=== PATIENT | female | born 1955 | race Caucasian/White ===

== ENCOUNTER 2016-09-17 13:05 | Inpatient (IN) | payer OTHER ==
[~2016-09-17] VITALS: Ht 157.5 cm; Wt 46.3 kg
[2016-09-17] MEDS ORDERED: CAN'T RECALL (13:11)
[2016-09-17 13:30] LABS: BASOPHILS # (AUTO) 0.9 /CMM (0.0-0.2); EOSINOPHILS % (AUTO) 0.2 % (0.0-6.0); HEMATOCRIT 33 % (33-45); HEMOGLOBIN 10.7 g/dL (11.5-14.8); LYMPHOCYTES # (AUTO) 0.3 /CMM (0.8-4.8); LYMPHOCYTES % (AUTO) 1.6 % (20.0-44.0); MEAN CORPUSCULAR HEMOGLOBIN 29 PG (26.0-33.0); MEAN CORPUSCULAR HGB CONC 33 g/dl (31.0-36.0); MEAN CORPUSCULAR VOLUME 89 fL (82-100); MONOCYTES # (AUTO) 0.4 /CMM (0.1-1.30); MONOCYTES % (AUTO) 2.3 % (2.0-12.0); NEUTROPHILS # (AUTO) 15.9 /CMM (1.8-8.9); NEUTROPHILS % (AUTO) 90.7 % (43.0-81.0); PLATELET COUNT (AUTO) 429 /CMM (150-450); RED BLOOD CELL COUNT(AUTO) 3.71 MIL/uL (4.0-5.2); WHITE BLOOD COUNT (AUTO) 17.5 K/uL (4.3-11.0)
[2016-09-17 13:31] LABS: BASOPHILS % (AUTO) 5.2 % (0.0-2.0); DIFF TOTAL % 100 %
[2016-09-17] MEDS ORDERED: IV SET PRIMARY PUMP SET 1 EA INFUS.SET MC ONE ×2 (13:34→14:33)
[2016-09-17] MEDS ORDERED: IV NS 0.9% 1,000 ML ONE ×2 (13:34→14:33)
[2016-09-17 13:43] LABS: INR 1.14 (0.87-1.13)
[2016-09-17] MEDS ORDERED: IV NS 0.9% 1,000 ML BAG IV ONE ×2 (14:00→20:30)
[2016-09-17 14:30] LABS: CREATININE 0.8 mg/dL (0.6-1.3); POTASSIUM 3.5 mmol/L (3.5-5.1)
[2016-09-17] MEDS ORDERED: VANCOMYCIN 1 GM in IV D5W 250 ML IV ONE (14:30)
[2016-09-17] MEDS ORDERED: CEFEPIME 1 GM in IV D5W 50 ML IV ONE (14:30)
[2016-09-17] MEDS ORDERED: IV NS 0.9% 1,000 ML IV ONE (14:30)
[2016-09-17 14:32] LABS: CALCIUM, SERUM 13.9 mg/dL (8.5-10.1)
[2016-09-17 14:37] LABS: HYPOCHROMASIA 1+; PLATELET ESTIMATE INCREASED
[2016-09-17 14:38] LABS: ANISOCYTOSIS 1+
[2016-09-17 14:55] LABS: LACTIC ACID 2.3 mmol/L (0.4-2.0)
[2016-09-17 15:13] LABS: *LACTIC ACID REFLEX FLAG YES
[2016-09-17 15:57] LABS: BAND % (MANUAL) 7 % (0.0-5.0); EOSINOPHILS % (MANUAL) 1 % (0-4); LYMPHOCYTES % (MANUAL) 2 % (16-48)
[2016-09-17] MEDS ORDERED: IV NS 0.9% 1,000 ML IV PRN (16:15)
[2016-09-17] MEDS ORDERED: ZOLPIDEM TARTRATE 5 MG TABLET PO PRN (16:30)
[2016-09-17] MEDS ORDERED: MAGNESIUM HYDROXIDE 30 ML UDC PO PRN (16:30)
[2016-09-17] MEDS ORDERED: Z GUARD REMEDY 2 OZ OINT TP PRN (16:30)
[2016-09-17] MEDS ORDERED: MORPHINE SULFATE INJ 2 MG/ML DISP.SYRIN IV PRN (16:30)
[2016-09-17] MEDS ORDERED: ONDANSETRON HCL/PF 4 MG/2 ML VIAL IVP PRN (16:30)
[2016-09-17] MEDS ORDERED: FEE PK DOSING 1 MIN EA MC ONE (16:46)
[2016-09-17 16:58] LABS: BILIRUBIN,DIRECT 0.1 mg/dL (0.0-0.2); BILIRUBIN,TOTAL 0.3 mg/dL (0.2-1.0)
[2016-09-17 17:00] VITALS: BP 90/58
[2016-09-17] MEDS: ENOXAPARIN SODIUM 40 MG/0.4 ML DISP.SYRIN SQ SCH (18:02)
[2016-09-17 20:00] VITALS: BP 74/58
[2016-09-17] MEDS ORDERED: PAMIDRONATE 90 MG in IV NS 0.9% 500 ML IV ONE (20:00)
[2016-09-17] MEDS ORDERED: IV SET PRIMARY 1 EA INFUS.SET MC ONE (22:01)
[2016-09-17] MEDS ORDERED: IPRATROPIUM NEB FS 0.5 MG/2.5 ML AMPUL.NEB NEB PRN (22:30)
[2016-09-17] MEDS ORDERED: ALBUTEROL FS 2.5 MG/0.5 ML VIAL.NEB NEB PRN (22:30)
[2016-09-17] MEDS ORDERED: SECONDARY IV SET 1 EA INFUS.SET MC ONE ×2 (22:46→22:55)
[2016-09-17] MEDS: CEFEPIME 1 GM in IV D5W 50 ML IV SCH (22:52)
[2016-09-18] VITALS: BP 83/53
[2016-09-18] MEDS ORDERED: SECONDARY IV SET 1 EA INFUS.SET MC ONE (00:20)
[2016-09-18] MEDS: VANCOMYCIN 0.75 GM in IV D5W 250 ML IV SCH ×3 (00:24→16:55)
[2016-09-18 04:00] VITALS: BP 81/49
[2016-09-18] MEDS: CEFEPIME 1 GM in IV D5W 50 ML IV SCH ×3 (06:03→20:58)
[2016-09-18 07:55] LABS: LACTIC ACID 1.8 mmol/L (0.4-2.0)
[2016-09-18 07:57] LABS: BASOPHILS % (AUTO) 0.1 % (0.0-2.0); DIFF TOTAL % 100 %; EOSINOPHILS # (AUTO) 0.1 /CMM (0.0-0.7); EOSINOPHILS % (AUTO) 0.7 % (0.0-6.0); HEMATOCRIT 25 % (33-45); HEMOGLOBIN 8.1 g/dL (11.5-14.8); LYMPHOCYTES # (AUTO) 0.3 /CMM (0.8-4.8); LYMPHOCYTES % (AUTO) 2.3 % (20.0-44.0); MEAN CORPUSCULAR HEMOGLOBIN 29 PG (26.0-33.0); MEAN CORPUSCULAR HGB CONC 32 g/dl (31.0-36.0); MEAN CORPUSCULAR VOLUME 89 fL (82-100); MONOCYTES # (AUTO) 0.5 /CMM (0.1-1.30); MONOCYTES % (AUTO) 4.8 % (2.0-12.0); NEUTROPHILS # (AUTO) 10.4 /CMM (1.8-8.9); NEUTROPHILS % (AUTO) 92.1 % (43.0-81.0); PLATELET COUNT (AUTO) 360 /CMM (150-450); RED BLOOD CELL COUNT(AUTO) 2.81 MIL/uL (4.0-5.2); WHITE BLOOD COUNT (AUTO) 11.2 K/uL (4.3-11.0)
[2016-09-18 08:00] VITALS: BP 85/53
[2016-09-18 08:23] LABS: ALANINE AMINOTRANSFERASE < 6 U/L (12-78); ALBUMIN 1.5 g/dL (3.4-5.0); ANION GAP 13 (5-14); ASPARTATE AMINOTRANSFERASE 32 U/L (15-37); BILIRUBIN,TOTAL 0.2 mg/dL (0.2-1.0); CALCIUM, SERUM 12.1 mg/dL (8.5-10.1); CARBON DIOXIDE 23 mmol/L (21-32); CHLORIDE 102 mmol/L (98-107); CREATININE 0.7 mg/dL (0.6-1.3); GFR 86 mL/min (>60); GLUCOSE 95 mg/dL (74-106); PHOSPHORUS 1.4 mg/dL (2.5-4.9); POTASSIUM 3.3 mmol/L (3.5-5.1); SODIUM SERUM 135 mmol/L (136-145); TOTAL PROTEIN, SERUM 5.2 g/dL (6.4-8.2); UREA NITROGEN, BLOOD 10 mg/dL (7-18)
[2016-09-18 08:36] LABS: THYROID STIMULATING HORMONE 41.87 uIU/mL (0.358-3.74)
[2016-09-18] MEDS: PANTOPRAZOLE 40 MG TABLET.DR PO SCH (09:01)
[2016-09-18] MEDS ORDERED: IOHEXOL-350 100 ML VIAL IV ONE (11:30)
[2016-09-18] MEDS ORDERED: IV NS 0.9% 0 ML IV ONE (11:30)
[2016-09-18] MEDS ORDERED: CT SWABBABLE VALVE TRANS SET 1 EA INFUS.SET MC ONE (11:30)
[2016-09-18] MEDS ORDERED: FEE PK DOSING 1 MIN EA MC ONE (15:32)
[2016-09-18 16:00] VITALS: BP 89/60
[2016-09-18] MEDS ORDERED: K PHOS NEUTRAL 250 MG TABLET PO ONE (16:30)
[2016-09-18] MEDS: IV NS 0.9% 1,000 ML IV PRN (16:55)
[2016-09-18 20:00] VITALS: BP 83/49
[2016-09-18 20:14] VITALS: BP 83/49
[2016-09-18] MEDS: ENOXAPARIN SODIUM 40 MG/0.4 ML DISP.SYRIN SQ SCH (21:02)
[2016-09-18] MEDS: MAGNESIUM OXIDE 400 MG TABLET PO SCH (21:02)
[2016-09-19] VITALS (7 sets, daily range): BP systolic 81–110; BP diastolic 51–60
[2016-09-19] MEDS: CEFEPIME 1 GM in IV D5W 50 ML IV SCH ×3 (05:28→22:41)
[2016-09-19] MEDS: IV NS 0.9% 1,000 ML IV PRN (05:29)
[2016-09-19] MEDS: VANCOMYCIN 0.75 GM in IV D5W 250 ML IV SCH ×4 (08:00→17:39)
[2016-09-19] MEDS: FERROUS SULFATE (325 MG) 325 MG/TAB TABLET PO SCH ×2 (09:00→17:41)
[2016-09-19 09:42] LABS: BASOPHILS % (AUTO) 0.3 % (0.0-2.0); DIFF TOTAL % 100 %; EOSINOPHILS # (AUTO) 0.1 /CMM (0.0-0.7); HEMATOCRIT 25 % (33-45); HEMOGLOBIN 8.1 g/dL (11.5-14.8); LYMPHOCYTES # (AUTO) 0.3 /CMM (0.8-4.8); LYMPHOCYTES % (AUTO) 3.3 % (20.0-44.0); MEAN CORPUSCULAR HEMOGLOBIN 29 PG (26.0-33.0); MEAN CORPUSCULAR HGB CONC 33 g/dl (31.0-36.0); MEAN CORPUSCULAR VOLUME 89 fL (82-100); MONOCYTES # (AUTO) 0.4 /CMM (0.1-1.30); NEUTROPHILS # (AUTO) 8.5 /CMM (1.8-8.9); NEUTROPHILS % (AUTO) 91.4 % (43.0-81.0); PLATELET COUNT (AUTO) 328 /CMM (150-450); RED BLOOD CELL COUNT(AUTO) 2.79 MIL/uL (4.0-5.2); WHITE BLOOD COUNT (AUTO) 9.3 K/uL (4.3-11.0)
[2016-09-19 09:59] LABS: CREATININE 0.7 mg/dL (0.6-1.3); POTASSIUM 3.1 mmol/L (3.5-5.1)
[2016-09-19 12:44] LABS: *SPE ALBUMIN 1.9 g/dL (2.9-4.4)
[2016-09-19] MEDS: FOLIC ACID 1 MG TABLET PO SCH (17:41)
[2016-09-19] MEDS: LEVOTHYROXINE SODIUM 50 MCG TABLET PO SCH (17:41)
[2016-09-19] MEDS: PANTOPRAZOLE 40 MG TABLET.DR PO SCH (17:41)
[2016-09-19] MEDS: ENOXAPARIN SODIUM 40 MG/0.4 ML DISP.SYRIN SQ SCH (21:00)
[2016-09-19] MEDS: MAGNESIUM OXIDE 400 MG TABLET PO SCH (22:45)
[2016-09-20] MEDS: CEFEPIME 1 GM in IV D5W 50 ML IV SCH ×3 (04:49→21:51)
[2016-09-20] MEDS: VANCOMYCIN 0.75 GM in IV D5W 250 ML IV SCH ×2 (04:49→15:08)
[2016-09-20] MEDS: IV NS 0.9% 1,000 ML IV PRN (04:50)
[2016-09-20 06:56] LABS: BASOPHILS % (AUTO) 0.4 % (0.0-2.0); DIFF TOTAL % 100 %; EOSINOPHILS # (AUTO) 0.1 /CMM (0.0-0.7); EOSINOPHILS % (AUTO) 1.1 % (0.0-6.0); HEMATOCRIT 25 % (33-45); HEMOGLOBIN 8.3 g/dL (11.5-14.8); LYMPHOCYTES # (AUTO) 0.3 /CMM (0.8-4.8); LYMPHOCYTES % (AUTO) 2.8 % (20.0-44.0); MEAN CORPUSCULAR HEMOGLOBIN 29 PG (26.0-33.0); MEAN CORPUSCULAR HGB CONC 33 g/dl (31.0-36.0); MEAN CORPUSCULAR VOLUME 90 fL (82-100); MONOCYTES # (AUTO) 0.4 /CMM (0.1-1.30); MONOCYTES % (AUTO) 4.3 % (2.0-12.0); NEUTROPHILS # (AUTO) 8.9 /CMM (1.8-8.9); NEUTROPHILS % (AUTO) 91.4 % (43.0-81.0); PLATELET COUNT (AUTO) 337 /CMM (150-450); RED BLOOD CELL COUNT(AUTO) 2.84 MIL/uL (4.0-5.2); WHITE BLOOD COUNT (AUTO) 9.7 K/uL (4.3-11.0)
[2016-09-20 07:19] LABS: CALCIUM, SERUM 9.7 mg/dL (8.5-10.1); CREATININE 0.7 mg/dL (0.6-1.3); POTASSIUM 3.2 mmol/L (3.5-5.1)
[2016-09-20 08:00] VITALS: BP_SYST 105; BP_SYST 85; BP_DIAS 47; BP_DIAS 52
[2016-09-20] MEDS: PANTOPRAZOLE 40 MG TABLET.DR PO SCH (08:23)
[2016-09-20] MEDS: FERROUS SULFATE (325 MG) 325 MG/TAB TABLET PO SCH ×2 (08:23→17:08)
[2016-09-20] MEDS: LEVOTHYROXINE SODIUM 50 MCG TABLET PO SCH (08:24)
[2016-09-20] MEDS: FOLIC ACID 1 MG TABLET PO SCH (08:24)
[2016-09-20] MEDS ORDERED: POTASSIUM CHLORIDE 20 MEQ TAB.PRT.SR PO SCH (12:30)
[2016-09-20 16:00] VITALS: BP 131/62
[2016-09-20 19:00] VITALS: BP 88/51
[2016-09-20 20:00] VITALS: BP 88/51
[2016-09-20] MEDS: MAGNESIUM OXIDE 400 MG TABLET PO SCH (21:40)
[2016-09-20] MEDS: HYDROCODONE/APAP 5/325MG 1 EACH TABLET PO PRN (21:40)
[2016-09-20] MEDS: ENOXAPARIN SODIUM 40 MG/0.4 ML DISP.SYRIN SQ SCH (21:41)
[2016-09-21] VITALS: BP 91/58
[2016-09-21] MEDS: CEFEPIME 1 GM in IV D5W 50 ML IV SCH ×3 (04:22→20:42)
[2016-09-21] MEDS: VANCOMYCIN 0.75 GM in IV D5W 250 ML IV SCH ×2 (04:22→15:03)
[2016-09-21 08:00] VITALS: BP 88/58
[2016-09-21 08:03] LABS: CALCIUM, SERUM 9.6 mg/dL (8.5-10.1); CREATININE 0.6 mg/dL (0.6-1.3); POTASSIUM 3.7 mmol/L (3.5-5.1)
[2016-09-21] MEDS: FOLIC ACID 1 MG TABLET PO SCH (08:06)
[2016-09-21] MEDS: PANTOPRAZOLE 40 MG TABLET.DR PO SCH (08:06)
[2016-09-21] MEDS: LEVOTHYROXINE SODIUM 50 MCG TABLET PO SCH (08:06)
[2016-09-21] MEDS: FERROUS SULFATE (325 MG) 325 MG/TAB TABLET PO SCH ×2 (08:06→16:15)
[2016-09-21] MEDS: HYDROCODONE/APAP 5/325MG 1 EACH TABLET PO PRN (09:12)
[2016-09-21 16:00] VITALS: BP 87/56
[2016-09-21 17:03] VITALS: BP 87/56
[2016-09-21 20:00] VITALS: BP 99/56
[2016-09-21] MEDS: FUROSEMIDE 40 MG/4 ML VIAL IV ONE ×2 (20:00→20:54)
[2016-09-21] MEDS ORDERED: SECONDARY IV SET 1 EA INFUS.SET MC ONE (20:36)
[2016-09-21] MEDS: ENOXAPARIN SODIUM 40 MG/0.4 ML DISP.SYRIN SQ SCH (20:50)
[2016-09-21] MEDS: MAGNESIUM OXIDE 400 MG TABLET PO SCH (22:28)
[2016-09-22] MEDS ORDERED: SECONDARY IV SET 1 EA INFUS.SET MC ONE (04:09)
[2016-09-22] MEDS: VANCOMYCIN 0.75 GM in IV D5W 250 ML IV SCH ×2 (04:12→17:59)
[2016-09-22] MEDS: CEFEPIME 1 GM in IV D5W 50 ML IV SCH ×3 (05:30→20:55)
[2016-09-22 06:55] LABS: DIFF TOTAL % 100 %; EOSINOPHILS # (AUTO) 0.1 /CMM (0.0-0.7); EOSINOPHILS % (AUTO) 0.6 % (0.0-6.0); HEMATOCRIT 25 % (33-45); HEMOGLOBIN 8.4 g/dL (11.5-14.8); LYMPHOCYTES # (AUTO) 0.3 /CMM (0.8-4.8); LYMPHOCYTES % (AUTO) 2.2 % (20.0-44.0); MEAN CORPUSCULAR HEMOGLOBIN 29 PG (26.0-33.0); MEAN CORPUSCULAR HGB CONC 33 g/dl (31.0-36.0); MEAN CORPUSCULAR VOLUME 89 fL (82-100); MONOCYTES # (AUTO) 0.6 /CMM (0.1-1.30); MONOCYTES % (AUTO) 4.6 % (2.0-12.0); NEUTROPHILS # (AUTO) 13.2 /CMM (1.8-8.9); NEUTROPHILS % (AUTO) 92.6 % (43.0-81.0); PLATELET COUNT (AUTO) 387 /CMM (150-450); RED BLOOD CELL COUNT(AUTO) 2.87 MIL/uL (4.0-5.2); WHITE BLOOD COUNT (AUTO) 14.2 K/uL (4.3-11.0)
[2016-09-22 06:57] LABS: CALCIUM, SERUM 9.2 mg/dL (8.5-10.1); CREATININE 0.6 mg/dL (0.6-1.3); POTASSIUM 3.5 mmol/L (3.5-5.1)
[2016-09-22 08:00] VITALS: BP 81/46
[2016-09-22] MEDS: PANTOPRAZOLE 40 MG TABLET.DR PO SCH (08:58)
[2016-09-22] MEDS: FOLIC ACID 1 MG TABLET PO SCH (08:58)
[2016-09-22] MEDS: FERROUS SULFATE (325 MG) 325 MG/TAB TABLET PO SCH ×2 (08:58→17:59)
[2016-09-22] MEDS: LEVOTHYROXINE SODIUM 50 MCG TABLET PO SCH (08:58)
[2016-09-22] MEDS: POLYETHYLENE GLYCOL 3350 17 GM POWD.PACK PO PRN (12:32)
[2016-09-22 16:00] VITALS: BP 86/46
[2016-09-22] MEDS: ACETAMINOPHEN 325 MG TABLET PO PRN (18:05)
[2016-09-22 20:00] VITALS: BP 93/44
[2016-09-22 20:13] VITALS: BP 93/44
[2016-09-22] MEDS: MAGNESIUM OXIDE 400 MG TABLET PO SCH (21:20)
[2016-09-22] MEDS: ENOXAPARIN SODIUM 40 MG/0.4 ML DISP.SYRIN SQ SCH (21:20)
[2016-09-23] MEDS: VANCOMYCIN 0.75 GM in IV D5W 250 ML IV SCH ×2 (03:02→16:04)
[2016-09-23] MEDS: CEFEPIME 1 GM in IV D5W 50 ML IV SCH (04:10)
[2016-09-23 08:00] VITALS: BP 96/52
[2016-09-23] MEDS: FERROUS SULFATE (325 MG) 325 MG/TAB TABLET PO SCH ×2 (09:00→16:07)
[2016-09-23] MEDS: FOLIC ACID 1 MG TABLET PO SCH (09:00)
[2016-09-23] MEDS: LEVOTHYROXINE SODIUM 50 MCG TABLET PO SCH (09:46)
[2016-09-23] MEDS: PANTOPRAZOLE 40 MG TABLET.DR PO SCH (09:48)
[2016-09-23 11:46] LABS: CALCIUM, SERUM 9.1 mg/dL (8.5-10.1); CREATININE 0.7 mg/dL (0.6-1.3); POTASSIUM 3.4 mmol/L (3.5-5.1)
[2016-09-23 11:49] LABS: BASOPHILS % (AUTO) 0.1 % (0.0-2.0); DIFF TOTAL % 100 %; EOSINOPHILS # (AUTO) 0.1 /CMM (0.0-0.7); EOSINOPHILS % (AUTO) 0.4 % (0.0-6.0); HEMATOCRIT 28 % (33-45); HEMOGLOBIN 8.9 g/dL (11.5-14.8); LYMPHOCYTES # (AUTO) 0.2 /CMM (0.8-4.8); LYMPHOCYTES % (AUTO) 1.1 % (20.0-44.0); MEAN CORPUSCULAR HEMOGLOBIN 29 PG (26.0-33.0); MEAN CORPUSCULAR HGB CONC 32 g/dl (31.0-36.0); MEAN CORPUSCULAR VOLUME 89 fL (82-100); MONOCYTES # (AUTO) 0.4 /CMM (0.1-1.30); MONOCYTES % (AUTO) 2.9 % (2.0-12.0); NEUTROPHILS # (AUTO) 13.1 /CMM (1.8-8.9); NEUTROPHILS % (AUTO) 95.5 % (43.0-81.0); PLATELET COUNT (AUTO) 463 /CMM (150-450); RED BLOOD CELL COUNT(AUTO) 3.08 MIL/uL (4.0-5.2); WHITE BLOOD COUNT (AUTO) 13.7 K/uL (4.3-11.0)
[2016-09-23 16:00] VITALS: BP 86/50
[2016-09-23 20:00] VITALS: BP 84/51
[2016-09-23] MEDS: ACETAMINOPHEN 325 MG TABLET PO PRN (20:30)
[2016-09-23] MEDS: ENOXAPARIN SODIUM 40 MG/0.4 ML DISP.SYRIN SQ SCH (20:31)
[2016-09-23] MEDS: MAGNESIUM OXIDE 400 MG TABLET PO SCH (21:34)
[2016-09-24] MEDS: VANCOMYCIN 0.75 GM in IV D5W 250 ML IV SCH (04:12)
[2016-09-24] MEDS ORDERED: CEFEPIME 1 GM in IV D5W 50 ML IV SCH (06:00)
[2016-09-24 07:58] LABS: BASOPHILS % (AUTO) 0.1 % (0.0-2.0); DIFF TOTAL % 100 %; EOSINOPHILS # (AUTO) 0.1 /CMM (0.0-0.7); EOSINOPHILS % (AUTO) 0.6 % (0.0-6.0); HEMATOCRIT 26 % (33-45); HEMOGLOBIN 8.4 g/dL (11.5-14.8); LYMPHOCYTES # (AUTO) 0.3 /CMM (0.8-4.8); LYMPHOCYTES % (AUTO) 2.9 % (20.0-44.0); MEAN CORPUSCULAR HEMOGLOBIN 29 PG (26.0-33.0); MEAN CORPUSCULAR HGB CONC 33 g/dl (31.0-36.0); MEAN CORPUSCULAR VOLUME 89 fL (82-100); MONOCYTES # (AUTO) 0.4 /CMM (0.1-1.30); MONOCYTES % (AUTO) 4.1 % (2.0-12.0); NEUTROPHILS # (AUTO) 9.7 /CMM (1.8-8.9); NEUTROPHILS % (AUTO) 92.3 % (43.0-81.0); PLATELET COUNT (AUTO) 428 /CMM (150-450); RED BLOOD CELL COUNT(AUTO) 2.89 MIL/uL (4.0-5.2); WHITE BLOOD COUNT (AUTO) 10.5 K/uL (4.3-11.0)
[2016-09-24 08:00] VITALS: BP 87/55
[2016-09-24 08:12] LABS: CALCIUM, SERUM 8.6 mg/dL (8.5-10.1); CREATININE 0.7 mg/dL (0.6-1.3); POTASSIUM 3.9 mmol/L (3.5-5.1)
[2016-09-24] MEDS: PANTOPRAZOLE 40 MG TABLET.DR PO SCH (08:37)
[2016-09-24] MEDS: FOLIC ACID 1 MG TABLET PO SCH (08:37)
[2016-09-24] MEDS: LEVOTHYROXINE SODIUM 50 MCG TABLET PO SCH (08:37)
[2016-09-24] MEDS: FERROUS SULFATE (325 MG) 325 MG/TAB TABLET PO SCH ×2 (08:37→16:14)
[2016-09-24 16:00] VITALS: BP 83/53
[2016-09-24] MEDS: ACETAMINOPHEN 325 MG TABLET PO PRN (16:14)
[2016-09-24] MEDS: POLYETHYLENE GLYCOL 3350 17 GM POWD.PACK PO PRN (16:14)
[2016-09-24] MEDS: MAG HYDROX/AL HYDROX/SIMETH 30 ML UDC PO PRN (16:15)
[2016-09-24] MEDS: DOXYCYCLINE HYCLATE (100 MG) 100 MG TABLET PO SCH (18:55)
[2016-09-24 20:00] VITALS: BP 89/53
[2016-09-24] MEDS: MAGNESIUM OXIDE 400 MG TABLET PO SCH (21:43)
[2016-09-24 22:00] VITALS: BP 89/53
[2016-09-25 07:54] LABS: BASOPHILS % (AUTO) 0.4 % (0.0-2.0); DIFF TOTAL % 100 %; EOSINOPHILS # (AUTO) 0.1 /CMM (0.0-0.7); EOSINOPHILS % (AUTO) 0.6 % (0.0-6.0); HEMATOCRIT 27 % (33-45); LYMPHOCYTES # (AUTO) 0.3 /CMM (0.8-4.8); LYMPHOCYTES % (AUTO) 2.7 % (20.0-44.0); MEAN CORPUSCULAR HEMOGLOBIN 30 PG (26.0-33.0); MEAN CORPUSCULAR HGB CONC 33 g/dl (31.0-36.0); MEAN CORPUSCULAR VOLUME 89 fL (82-100); MONOCYTES # (AUTO) 0.5 /CMM (0.1-1.30); MONOCYTES % (AUTO) 4.3 % (2.0-12.0); PLATELET COUNT (AUTO) 483 /CMM (150-450); RED BLOOD CELL COUNT(AUTO) 3.05 MIL/uL (4.0-5.2); WHITE BLOOD COUNT (AUTO) 11.9 K/uL (4.3-11.0)
[2016-09-25 08:00] VITALS: BP 88/58
[2016-09-25 08:11] LABS: CREATININE 0.5 mg/dL (0.6-1.3); POTASSIUM 4.2 mmol/L (3.5-5.1)
[2016-09-25] MEDS: PANTOPRAZOLE 40 MG TABLET.DR PO SCH (08:48)
[2016-09-25] MEDS: LEVOTHYROXINE SODIUM 50 MCG TABLET PO SCH (08:48)
[2016-09-25] MEDS: FOLIC ACID 1 MG TABLET PO SCH (08:48)
[2016-09-25] MEDS: FERROUS SULFATE (325 MG) 325 MG/TAB TABLET PO SCH ×2 (08:48→16:42)
[2016-09-25 16:00] VITALS: BP 82/50
[2016-09-25] MEDS: DOXYCYCLINE HYCLATE (100 MG) 100 MG TABLET PO SCH ×2 (16:00→16:42)
[2016-09-25] MEDS: MAG HYDROX/AL HYDROX/SIMETH 30 ML UDC PO PRN ×2 (16:42→16:53)
[2016-09-25 20:00] VITALS: BP 86/51
[2016-09-25] MEDS: MAGNESIUM OXIDE 400 MG TABLET PO SCH (21:43)
[2016-09-25 22:00] VITALS: BP 86/51
[2016-09-26 08:00] VITALS: BP 90/59
[2016-09-26 08:20] LABS: CALCIUM, SERUM 8.7 mg/dL (8.5-10.1); CREATININE 0.5 mg/dL (0.6-1.3); POTASSIUM 4.1 mmol/L (3.5-5.1)
[2016-09-26] MEDS: FERROUS SULFATE (325 MG) 325 MG/TAB TABLET PO SCH ×2 (09:45→18:13)
[2016-09-26] MEDS: PANTOPRAZOLE 40 MG TABLET.DR PO SCH (09:45)
[2016-09-26] MEDS: FOLIC ACID 1 MG TABLET PO SCH (09:45)
[2016-09-26] MEDS: LEVOTHYROXINE SODIUM 50 MCG TABLET PO SCH (09:45)
[2016-09-26 16:00] VITALS: BP_SYST 90; BP_SYST 95; BP_DIAS 55; BP_DIAS 59
[2016-09-26 20:00] VITALS: BP 80/52
[2016-09-26] MEDS: MAGNESIUM OXIDE 400 MG TABLET PO SCH (22:09)
[2016-09-27 07:16] LABS: DIFF TOTAL % 100 %; EOSINOPHILS # (AUTO) 0.1 /CMM (0.0-0.7); EOSINOPHILS % (AUTO) 0.6 % (0.0-6.0); HEMATOCRIT 28 % (33-45); HEMOGLOBIN 8.9 g/dL (11.5-14.8); LYMPHOCYTES # (AUTO) 0.3 /CMM (0.8-4.8); MEAN CORPUSCULAR HEMOGLOBIN 29 PG (26.0-33.0); MEAN CORPUSCULAR HGB CONC 33 g/dl (31.0-36.0); MEAN CORPUSCULAR VOLUME 89 fL (82-100); MONOCYTES # (AUTO) 0.5 /CMM (0.1-1.30); MONOCYTES % (AUTO) 4.3 % (2.0-12.0); NEUTROPHILS # (AUTO) 10.8 /CMM (1.8-8.9); NEUTROPHILS % (AUTO) 92.1 % (43.0-81.0); PLATELET COUNT (AUTO) 486 /CMM (150-450); RED BLOOD CELL COUNT(AUTO) 3.08 MIL/uL (4.0-5.2); WHITE BLOOD COUNT (AUTO) 11.7 K/uL (4.3-11.0)
[2016-09-27 08:00] VITALS: BP 91/53
[2016-09-27 08:02] LABS: CALCIUM, SERUM 9.5 mg/dL (8.5-10.1); CREATININE 0.5 mg/dL (0.6-1.3); POTASSIUM 4.8 mmol/L (3.5-5.1)
[2016-09-27] MEDS: PANTOPRAZOLE 40 MG TABLET.DR PO SCH (08:50)
[2016-09-27] MEDS: FERROUS SULFATE (325 MG) 325 MG/TAB TABLET PO SCH (08:50)
[2016-09-27] MEDS: LEVOTHYROXINE SODIUM 50 MCG TABLET PO SCH (08:50)
[2016-09-27] MEDS: FOLIC ACID 1 MG TABLET PO SCH (08:50)
== END 2016-09-27 15:41 | disposition home health service (06) | DRG 720 ==
LOC: EDBD 13:07 → ER 13:07 → TELE 15:01 → MED 09-19 08:55
PROVIDERS: ADMIT Family Medicine; ATTEND Family Medicine
DX: A41.9 Sepsis, unspecified organism (principal); J96.01 Acute respiratory failure with hypoxia; J15.6 Pneumonia due to other Gram-negative bacteria; E87.2 Acidosis; J91.0 Malignant pleural effusion; C77.9 Secondary and unspecified malignant neoplasm of lymph node, unspecified; C79.51 Secondary malignant neoplasm of bone; J15.9 Unspecified bacterial pneumonia; E53.8 Deficiency of other specified B group vitamins; E83.42 Hypomagnesemia; E83.52 Hypercalcemia; Z87.891 Personal history of nicotine dependence; D64.9 Anemia, unspecified; R65.20 Severe sepsis without septic shock; Z90.12 Acquired absence of left breast and nipple; Z92.21 Personal history of antineoplastic chemotherapy; E83.39 Other disorders of phosphorus metabolism; C34.90 Malignant neoplasm of unspecified part of unspecified bronchus or lung; E03.9 Hypothyroidism, unspecified; E87.1 Hypo-osmolality and hyponatremia; Z85.3 Personal history of malignant neoplasm of breast
CPT/HCPCS: 36415; 70450-TC; 70490-TC; 71010-TC; 71250-TC; 72192-TC; 74150-TC; 80048-TC; 80053-TC; 80202-TC; 82247-TC; 82248-TC; 82728-TC; 82746; 83540-TC; 83605-TC; 83735-TC; 84100-TC; 84155; 84165; 84439-TC; 84443-TC; 84484-TC; 85025-TC; 85730-TC; 86300; 87040-TC; 87081-TC; 94799-TC; A4606; J0692; J1650; J1940; J2430; J3370; J7030; J7040; J7050; J7060; Q9967; Z7610

== ENCOUNTER 2016-10-28 11:40 | Inpatient (IN) | payer OTHER ==
[~2016-10-28] VITALS: Ht 162.6 cm; Wt 43.1 kg
[~2016-10-28 11:40] MED LIST: CAN'T RECALL
--- NOTE | 2016-10-28 11:45 | NUR ---
PT BIB [facility] FOR GENERALIZED WEAKNESS AND BECAUSE THE FAMILY IS UNABLE TO CARE FOR HER AT HOME. DENIES PAIN. PT NOTED WITH LARGE MASS TO L UPPER CHEST. RESP EVEN SLIGHTLY LABORED. VSS, OXYGENATING WELL ON ROOM AIR. IN ER BED 09 ON MONITOR.
[2016-10-28 12:14] LABS: BASOPHILS # (AUTO) 0.3 /CMM (0.0-0.2); BASOPHILS % (AUTO) 2.3 % (0.0-2.0); EOSINOPHILS % (AUTO) 0.2 % (0.0-6.0); HEMATOCRIT 27 % (33-45); HEMOGLOBIN 8.5 g/dL (11.5-14.8); LYMPHOCYTES # (AUTO) 0.4 /CMM (0.8-4.8); LYMPHOCYTES % (AUTO) 2.9 % (20.0-44.0); MEAN CORPUSCULAR HEMOGLOBIN 28 PG (26.0-33.0); MEAN CORPUSCULAR HGB CONC 32 g/dl (31.0-36.0); MEAN CORPUSCULAR VOLUME 88 fL (82-100); MONOCYTES # (AUTO) 0.7 /CMM (0.1-1.30); MONOCYTES % (AUTO) 4.8 % (2.0-12.0); NEUTROPHILS # (AUTO) 13.6 /CMM (1.8-8.9); NEUTROPHILS % (AUTO) 89.8 % (43.0-81.0); PLATELET COUNT (AUTO) 604 /CMM (150-450); RDW COEFFICIENT OF VARIATION 14.9 (11.5-15.0); RED BLOOD CELL COUNT(AUTO) 3.01 MIL/uL (4.0-5.2)
--- NOTE | 2016-10-28 12:30 | NUR ---
CALLED NURSING SUP. FOR MS BED
[2016-10-28 12:32] LABS: CREATININE 0.6 mg/dL (0.6-1.3); POTASSIUM 3.4 mmol/L (3.5-5.1)
[2016-10-28 12:44] LABS: CALCIUM, SERUM 17.6 mg/dL (8.5-10.1)
--- NOTE | 2016-10-28 12:48 | NUR ---
[facility] PAGED, DR. CIELO NATION QUALITY SPECIALIST
[2016-10-28] MEDS ORDERED: IV NS 0.9% 500 ML BAG IV ONE (13:00)
[2016-10-28] MEDS ORDERED: IV NS 0.9% 500 ML IV ONE (13:09)
[2016-10-28] MEDS ORDERED: IV SET PRIMARY 1 EA INFUS.SET MC ONE (13:09)
--- NOTE | 2016-10-28 13:18 | NUR ---
MS 306-1
--- NOTE | 2016-10-28 13:33 | NUR ---
REPORT GIVEN TO BRE FIGUEROA FOR ADMISSION
--- NOTE | 2016-10-28 13:54 | NUR ---
PT TRANSPORTED TO 306 IN STABLE CONDITION
[2016-10-28 14:00] VITALS: BP_SYST 91; BP_SYST 94; BP_DIAS 55
[2016-10-28] MEDS ORDERED: MAG HYDROX/AL HYDROX/SIMETH 30 ML UDC PO PRN (14:00)
[2016-10-28] MEDS ORDERED: ACETAMINOPHEN 325 MG TABLET PO PRN (14:00)
[2016-10-28] MEDS ORDERED: Z GUARD REMEDY 2 OZ OINT TP PRN (14:00)
[2016-10-28] MEDS ORDERED: ONDANSETRON HCL/PF 4 MG/2 ML VIAL IVP PRN (14:00)
[2016-10-28] MEDS ORDERED: MAGNESIUM HYDROXIDE 30 ML UDC PO PRN (14:00)
[2016-10-28] MEDS ORDERED: MORPHINE SULFATE INJ 2 MG/ML DISP.SYRIN IV PRN (14:00)
[2016-10-28] MEDS ORDERED: HYDROCODONE/APAP 5/325MG 1 EACH TABLET PO PRN (14:00)
[2016-10-28] MEDS ORDERED: ZOLPIDEM TARTRATE 5 MG TABLET PO PRN (14:00)
--- NOTE | 2016-10-28 14:00 | NUR ---
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 MD on site Dr. Garibay aware of the admission and orders given. Per MD to keep patient on Full code until patient decide for hospice. No complaint of pain at this time. On room air and tolerated well. Pictures taken and filed in the patient chart. Wound consult ordered. Vital signs checked and recorded. kept patient clean and comfortable in bed, call light with in patient reach, will continue to monitor accordingly.
[2016-10-28] MEDS ORDERED: PAMIDRONATE 90 MG in IV NS 0.9% 500 ML IV ONE (14:30)
[2016-10-28] MEDS ORDERED: IV SET PRIMARY PUMP SET 1 EA INFUS.SET MC ONE (14:56)
[2016-10-28] MEDS ORDERED: SECONDARY IV SET 1 EA INFUS.SET MC ONE (14:56)
[2016-10-28] MEDS: IV NS 0.9% 1,000 ML IV PRN (15:05)
[2016-10-28] MEDS: FOLIC ACID 1 MG TABLET PO SCH (15:05)
[2016-10-28 16:00] VITALS: BP 121/80
--- NOTE | 2016-10-28 19:18 | NUR ---
ms rn closing notes All needs provided, attended, and anticipated. kept patient clean and comfortable in bed, call light with in patient reach, will continue to monitor accordingly. Endorsed to next shift RN to continue care.
--- NOTE | 2016-10-28 19:30 | NUR ---
MS RN NOTE: PATIENT RESTING IN BED, NO ACUTE DISTRESS NOTED. BREATHING EVEN AND UNLABORED, NO SOB NOTED AT THIS TIME. IV TO RAC IN PLACE, INFUSING NS AT 125 ML/HR. PLEURAL DRAIN TO LEFT ABDOMEN CLAMPED AND IN PLACE. BED LOCKED AND IN LOWEST POSITION, CALL LIGHT IN REACH. WILL CONTINUE TO MONITOR.
--- NOTE | 2016-10-28 19:40 | NUR ---
MS RN NOTE: PATIENT RESTING IN BED, NO ACUTE DISTRESS NOTED. BREATHING EVEN AND UNLABORED, NO SOB NOTED AT THIS TIME. HL TO LFA IN PLACE. CHEST TUBE SITE TO LEFT ABDOMEN COVER WITH GAUZE, NO DRAINAGE/BLEEDING NOTED. BED LOCKED AND IN LOWEST POSITION, CALL LIGHT IN REACH. WILL CONTINUE TO MONITOR. Addendum: 10/28/16 at 2016 by PRASHANT CALDERON RN WRONG PATIENT ENTRY
[2016-10-28 20:07] VITALS: BP 97/57
--- NOTE | 2016-10-28 21:00 | NUR ---
MS RN NOTE: PATIENT MOVED TO ROOM 327-1. REORIENTED PATIENT TO ROOM AND USE OF CALL LIGHT. BELONGINGS MOVED WITH PATIENT. BED LOCKED AND IN LOWEST POSITION, CALL LIGHT IN REACH. WILL CONTINUE TO MONITOR.
--- NOTE | 2016-10-29 02:30 | NUR ---
MS RN NOTE: PATIENT CONGESTED, TRIED TO ORAL SUCTION PATIENT, BUT PATIENT BITING AT TUBING AND PULLING AT TUBING. O2 SAT STABLE 96%. WILL CONTINUE TO MONITOR.
--- NOTE | 2016-10-29 04:00 | NUR ---
MS RN NOTE: PATIENT PULLED OUT IV. NEW IV STARTED TO RIGHT WRIST #22. PATIENT STILL CONGESTED AND SUCTIONED PATIENT WITH RT ASSISTANCE. PATIENT TOLERATED TREATMENT. WILL CONTINUE TO MONITOR.
--- NOTE | 2016-10-29 06:15 | NUR ---
MS RN NOTE: PATIENT RESTING IN BED, NO ACUTE DISTRESS NOTED. BREATHING EVEN AND UNLABORED, NO SOB NOTED AT THIS TIME. IV TO RIGHT WRIST IN PLACE, INFUSING NS AT 125 ML/HR. PLEURAL DRAIN TO LEFT ABDOMEN CLAMPED AND IN PLACE. BED LOCKED AND IN LOWEST POSITION, CALL LIGHT IN REACH. WILL ENDORSE TO DAY NURSE TO CONTINUE WITH PLAN OF CARE.
[2016-10-29] MEDS: IV NS 0.9% 1,000 ML IV PRN ×2 (06:38→21:06)
[2016-10-29] MEDS: PANTOPRAZOLE 40 MG TABLET.DR PO SCH (06:38)
[2016-10-29] MEDS: LEVOTHYROXINE SODIUM 25 MCG TABLET PO SCH (06:38)
[2016-10-29 07:32] LABS: EOSINOPHILS % (AUTO) 0.1 % (0.0-6.0); HEMATOCRIT 23 % (33-45); HEMOGLOBIN 7.4 g/dL (11.5-14.8); LYMPHOCYTES # (AUTO) 0.3 /CMM (0.8-4.8); LYMPHOCYTES % (AUTO) 1.7 % (20.0-44.0); MEAN CORPUSCULAR HEMOGLOBIN 29 PG (26.0-33.0); MEAN CORPUSCULAR HGB CONC 32 g/dl (31.0-36.0); MEAN CORPUSCULAR VOLUME 88 fL (82-100); MONOCYTES # (AUTO) 0.6 /CMM (0.1-1.30); MONOCYTES % (AUTO) 3.4 % (2.0-12.0); NEUTROPHILS # (AUTO) 16.4 /CMM (1.8-8.9); NEUTROPHILS % (AUTO) 94.8 % (43.0-81.0); PLATELET COUNT (AUTO) 555 /CMM (150-450); RDW COEFFICIENT OF VARIATION 16.2 (11.5-15.0); RED BLOOD CELL COUNT(AUTO) 2.61 MIL/uL (4.0-5.2); WHITE BLOOD COUNT (AUTO) 17.3 K/uL (4.3-11.0)
--- NOTE | 2016-10-29 07:32 | NUR ---
RN NOTES PT IN BED.SLEEPING BUT EASY TO AROUSE. IN NO APPARENT DISTRESS. RESPIRATIONS EVEN AND UNLABORED. DENIES PAIN AND DISCOMFORT AT THIS TIME. WILL CONTINUE TO MONITOR
[2016-10-29 07:58] VITALS: BP 94/54
[2016-10-29 08:04] LABS: CREATININE 0.6 mg/dL (0.6-1.3); MAGNESIUM 1.4 mg/dL (1.8-2.4); PHOSPHORUS 2.4 mg/dL (2.5-4.9); POTASSIUM 2.9 mmol/L (3.5-5.1)
[2016-10-29 08:25] LABS: CALCIUM, SERUM 16.5 mg/dL (8.5-10.1)
--- NOTE | 2016-10-29 08:27 | NUR ---
RN NOTES SPOKE WITH LABS; STATED PT HAS CRITICAL CALCIUM RESULT OF 16.5. NOTED. WILL REPORT TO
[2016-10-29] MEDS: FOLIC ACID 1 MG TABLET PO SCH (08:28)
--- NOTE | 2016-10-29 10:30 | NUR ---
RN NOTES RECEIVED NEW ORDER FOR REPLACEMENTS- NOTED AND CARRIED OUT. WILL CONTINUE TO MONITOR
[2016-10-29] MEDS: POTASSIUM CHLORIDE 20 MEQ TAB.PRT.SR PO SCH ×3 (10:54→13:53)
[2016-10-29] MEDS: Magnesium 1GM/D5W 100ML PREMIX 100 ML IV SCH ×6 (10:54→17:39)
[2016-10-29] MEDS ORDERED: SECONDARY IV SET 1 EA INFUS.SET MC ONE (11:59)
[2016-10-29] MEDS ORDERED: IV SET PRIMARY PUMP SET 1 EA INFUS.SET MC ONE (13:52)
[2016-10-29] MEDS: Potassium Phosphate meq 11 MEQ in IV D5W 100 ML IV SCH ×2 (13:54→16:36)
[2016-10-29] MEDS ORDERED: Magnesium 1GM/D5W 100ML PREMIX 1 G in PREMIX 1 EA IV SCH (14:00)
[2016-10-29 16:00] VITALS: BP 94/53
--- NOTE | 2016-10-29 18:00 | NUR ---
RN NOTES PT IN BED. AWAKE, ALERT, ORIENTED X 3. IN NO APPARENT DISTRESS. RESPIRATIONS EVEN AND UNLABORED. PT NOTED TO BE WEAK. PT DENIES PAIN AT THIS TIME. PER BROTHER, PT'S SIGNED PAPERS FOR HOSPICE/PALLIATIVE CARE. TOLERATED MEDS AND TREATMENTS. WILL ENDORSE TO ONCOMING SHIFT
--- NOTE | 2016-10-29 19:30 | NUR ---
MS/RN RECEIVE PATIENT AWAKE, ALERT, APPEARS DEPRESSED, NOT TALKING MUCH, NOT EVEN ANSWERING TO MY QUESTIONS, APPEAR COMFORTABLE, NO SIGNS OF DISTRESS NOTED, CALL LIGHT IN REACH. WILL MONITOR.
[2016-10-29 20:00] VITALS: BP 105/54
--- NOTE | 2016-10-30 00:17 | NUR ---
MS/RN PATIENT IS SLEEPING AT THIS TIME, COMFORTABLE, NO DISTRESS NOTED, CALL LIGHT IN REACH. WILL CONTINUE TO MONITOR.
[2016-10-30] MEDS: IV NS 0.9% 1,000 ML IV PRN (05:41)
--- NOTE | 2016-10-30 06:40 | NUR ---
MS/RN SLEEPING, APPEAR COMFORTABLE, BREATHING EVEN AND UNLABORED. NO CHANGE IN CONDITION. ALL NEEDS ATTENDED AT THIS TIME. WILL CONTINUE TO MONITOR.
--- NOTE | 2016-10-30 07:00 | NUR ---
MS/RN AM NOTES RECEIVED PATIENT IN BED, COMFORTABLE AWAKE, RESPONSIVE TO VERBAL STIMULI, NO SOB, HOB ELEVATED 35 DEGREE, DENIES PAIN. ON ROOM AIR, TOLERATING WELL 02 SAT 95 %. IV LINE ON RIGHT HAND PATENT. KEPT CLEAN DRY, COMFORTABLE, WITH CALL LIGHT WITHIN EASY REACH
[2016-10-30 07:26] LABS: BASOPHILS % (AUTO) 0.1 % (0.0-2.0); EOSINOPHILS # (AUTO) 0.1 /CMM (0.0-0.7); EOSINOPHILS % (AUTO) 0.3 % (0.0-6.0); HEMATOCRIT 22 % (33-45); HEMOGLOBIN 7.2 g/dL (11.5-14.8); LYMPHOCYTES # (AUTO) 0.3 /CMM (0.8-4.8); LYMPHOCYTES % (AUTO) 1.9 % (20.0-44.0); MEAN CORPUSCULAR HEMOGLOBIN 29 PG (26.0-33.0); MEAN CORPUSCULAR HGB CONC 33 g/dl (31.0-36.0); MEAN CORPUSCULAR VOLUME 88 fL (82-100); MONOCYTES # (AUTO) 0.5 /CMM (0.1-1.30); MONOCYTES % (AUTO) 2.7 % (2.0-12.0); NEUTROPHILS # (AUTO) 16.1 /CMM (1.8-8.9); PLATELET COUNT (AUTO) 540 /CMM (150-450); RDW COEFFICIENT OF VARIATION 16.2 (11.5-15.0); WHITE BLOOD COUNT (AUTO) 16.9 K/uL (4.3-11.0)
[2016-10-30 08:00] VITALS: BP 112/59
[2016-10-30 08:30] LABS: CREATININE 0.7 mg/dL (0.6-1.3); MAGNESIUM 2.3 mg/dL (1.8-2.4)
--- NOTE | 2016-10-30 08:38 | NUR ---
WOUND CARE CONSULT: PATIENT SEEN AND SKIN ASSESSMENT DONE. PATIENT VERY WEAK, UNABLE TO TURN AND REPOSITION SELF, INCONTINENT, KAYLA 12, ENRIQUE ISOFLEX STIVEN BED IN USE. SEE TODAY'S SKIN ASSESSMENT IN PCS ALONG WITH RECOMMENDATIONS. RECOMMEND MOISTURE PROTECTION WITH Z GUARD ORDERED, PRESSURE PREVENTION MEASURES, TURN AND REPOSITION EVERY 2 HRS PATIENT CONDITION PERMITS, OFFLOAD HEELS. ALL DISCUSSED WITH NURSING STAFF. MD IN AGREEMENT WITH PLAN OF CARE. Addendum: 10/30/16 at 0840 by ABE ORTEGA WNDNU Amended: Links added.
[2016-10-30 08:41] LABS: CALCIUM, SERUM 14.7 mg/dL (8.5-10.1); POTASSIUM 2.6 mmol/L (3.5-5.1)
[2016-10-30] MEDS: PANTOPRAZOLE 40 MG TABLET.DR PO SCH (08:54)
[2016-10-30] MEDS: LEVOTHYROXINE SODIUM 25 MCG TABLET PO SCH (08:54)
[2016-10-30] MEDS ORDERED: HYDROGEL DRESSING 90 GM TUBE TP SCH (09:00)
--- NOTE | 2016-10-30 09:00 | NUR ---
MS/RN NOTES LAB CL RESULT RECEIVED POTASSIUM 2.6, CALCIUM 14.7 DR. NATION INFORMED VIA PHONE WITH ORDER TO GIVE POTASSIUM 60 MEQ PO. NOTED CARRIED OUT, PT INFORMED
[2016-10-30] MEDS ORDERED: POTASSIUM CHLORIDE 10 MEQ TABLET.SA PO ONE (09:30)
[2016-10-30] MEDS: FOLIC ACID 1 MG TABLET PO SCH (09:50)
[2016-10-30] MEDS ORDERED: Potassium Chloride 40 MEQ in IV NS 0.9% 1,000 ML IV PRN (11:15)
[2016-10-30] MEDS ORDERED: SECONDARY IV SET 1 EA INFUS.SET MC ONE (12:28)
[2016-10-30] MEDS: Potassium Phosphate meq 11 MEQ in IV D5W 100 ML IV SCH ×2 (12:32→15:05)
[2016-10-30 16:00] VITALS: BP 98/56
--- NOTE | 2016-10-30 18:30 | NUR ---
DISCHARGED PATIENT TO SNF, VIA GURNEY, WITHOUT SOB, WITHOUT PAIN , RA, WITH STABLE VITAL SIGNS 99/56, 90, 18, 97.4, 20, 96% RA DR. NATION AGREED TO KEEP IV PERIPHERAL LINE PER SNF RN REQUEST. DISCHARGE PAPERS GIVEN, EXPLAINED, ENCOURAGED TO F/U WITH PRIMARY PHYSICIAN WITHIN A WEEK
== END 2016-10-30 18:35 | disposition hospice, inpatient (51) | DRG 136 ==
LOC: ER 11:41 → MED 13:23
PROVIDERS: ADMIT Family Medicine; ATTEND Family Medicine
DX: C34.90 Malignant neoplasm of unspecified part of unspecified bronchus or lung (principal); C79.51 Secondary malignant neoplasm of bone; J90 Pleural effusion, not elsewhere classified; E53.8 Deficiency of other specified B group vitamins; E83.52 Hypercalcemia; J98.11 Atelectasis; R62.7 Adult failure to thrive; E03.9 Hypothyroidism, unspecified; Z87.891 Personal history of nicotine dependence; D64.9 Anemia, unspecified; D72.829 Elevated white blood cell count, unspecified; Z92.21 Personal history of antineoplastic chemotherapy; Z85.3 Personal history of malignant neoplasm of breast; Z90.12 Acquired absence of left breast and nipple; Z51.5 Encounter for palliative care
CPT/HCPCS: 31720; 36415; 71010-TC; 80048-TC; 83735-TC; 84100-TC; 85025-TC; 87081-TC; A4216; A4606; A6248; J2270; J2430; J3475; J3480; J3490; J7030; J7040; J7060; Z7610